=== PATIENT | male | born 1990 | race Caucasian/White ===

== ENCOUNTER 2017-01-24 08:55 | Emergency (ER) | payer MEDICAID, OTHER ==
[~2017-01-24] VITALS: Ht 170.2 cm; Wt 138.0 kg
[~2017-01-24 08:55] MED LIST: ALPR0.25 PO; HYDR-3240 PO; SERT100T5 PO; ZOLP10TA PO
[2017-01-24 08:57] VITALS: BP 174/121
[2017-01-24] MEDS ORDERED: HYDROmorphone 1 MG/ML, 1ML ONE (10:14)
[2017-01-24] MEDS ORDERED: KETOROLAC 30 MG/1 ML ONE (10:15)
[2017-01-24] MEDS ORDERED: DIAZEPAM 5 MG TABLET ONE (10:15)
[2017-01-24] MEDS ORDERED: KETOROLAC 30 MG/1 ML IM ONE (10:30)
[2017-01-24] MEDS ORDERED: HYDROmorphone 1 MG/ML, 1ML IM ONE (10:30)
[2017-01-24] MEDS ORDERED: DIAZEPAM 5 MG TABLET PO ONE (10:30)
== END 2017-01-24 11:14 | disposition home or self-care (01) ==
LOC: ED 11:00
DX: S39.012A Strain of muscle, fascia and tendon of lower back, initial encounter (principal); M51.17 Intervertebral disc disorders with radiculopathy, lumbosacral region; G89.29 Other chronic pain; W07.XXXA Fall from chair, initial encounter; Y93.89 Activity, other specified; Y92.009 Unspecified place in unspecified non-institutional (private) residence as the place of occurrence of the external cause; Y99.8 Other external cause status
CPT/HCPCS: 72110; 96372; 99284; J1170; J1885